=== PATIENT | female | born 1995 | race Caucasian/White ===

== ENCOUNTER 2016-12-02 10:20 | Emergency (ER) | payer MEDICAID ==
[~2016-12-02] VITALS: Ht 175.3 cm; Wt 55.8 kg
[2016-12-02 10:28] VITALS: BP_SYST 123
[2016-12-02 12:40] VITALS: BP_SYST 129
== END 2016-12-02 12:40 | disposition home or self-care (01) ==
LOC: SED 10:20
DX: S96.812A Strain of other specified muscles and tendons at ankle and foot level, left foot, initial encounter (principal); X58.XXXA Exposure to other specified factors, initial encounter; Y93.51 Activity, roller skating (inline) and skateboarding; Y92.89 Other specified places as the place of occurrence of the external cause; Y99.8 Other external cause status
CPT/HCPCS: 73650-TC; 99284